=== PATIENT | male | born 1995 | race Asian ===

== ENCOUNTER 2017-04-15 11:27 | Emergency (ER) | payer BC ==
[~2017-04-15] VITALS: Ht 180.3 cm; Wt 75.3 kg
[2017-04-15 11:41] VITALS: TEMP 36.6; Ht 180.3 cm; Wt 75.3 kg
[2017-04-15] MEDS ORDERED: SODIUM CHLORIDE 0.9% 1000ML 1,000 ML IV STA (12:26)
--- NOTE | 2017-04-15 12:51 | DIAGNOSTIC IMAGING REPORT ---
SINGLE VIEW CHEST CLINICAL HISTORY: Generalized weakness. FINDINGS: An AP, portable, upright chest radiograph is obtained. No prior studies are available for comparison at the time of dictation. The cardiomediastinal silhouette is unremarkable. The lungs and pleural spaces are clear. No pneumothorax is seen. The bony thorax is grossly intact. IMPRESSION: No active disease in the chest. Electronically signed by: Darshan Graham M.D. 04/15/2017 12:50 PM Dictated Date/Time: 04/15/2017 12:49 PM
[2017-04-15 13:39] VITALS: O2SAT 98
[2017-04-15 13:50] LABS: URINE APPEARANCE CLEAR (CLEAR); URINE BILIRUBIN NEG (NEG); URINE COLOR YELLOW; URINE NITRITE NEG (NEG); URINE SPECIFIC GRAVITY 1.015 (1.000-1.030); UROBILINOGEN NEG (NEG)
[2017-04-15 13:54] LABS: MANUAL MICROSCOPIC REQUIRED? NO; REVIEW REQ? NO
[2017-04-15 13:57] LABS: BASO % 0.2 %; BASO ABS # 0.02 K/uL (0-0.2); COMPLETE YES; EOS % 1.3 %; HEMATOCRIT 45.5 % (42-52); IG% 0.7 %; LYMPH % 29.3 %; LYMPH ABS # 2.79 K/uL (1.2-3.4); MEAN CELL VOLUME 85.7 fL (80-100); MEAN CORPUSCULAR HEMOGLOBIN 29.4 pg (25-34); MEAN CORPUSCULAR HGB CONC 34.3 g/dl (32-36); MEAN PLATELET VOLUME 10.2 fL (7.4-10.4); MONO % 6.6 %; NEUT % 61.9 %; PLATELET COUNT 271 K/uL (130-400); RED BLOOD COUNT 5.31 M/uL (4.7-6.1); WHITE BLOOD COUNT 9.52 K/uL (4.8-10.8)
[2017-04-15 14:08] LABS: PARTIAL THROMBOPLASTIN RATIO 1.2; PROTHROMBIN TIME (PATIENT) 10.6 SECONDS (9.0-12.0)
[2017-04-15 14:10] LABS: ALT/SGPT 26 U/L (12-78); AST/SGOT 12 U/L (15-37); BLOOD UREA NITROGEN 16 mg/dl (7-18); BUN/CREATININE RATIO 17.1 (10-20); CALCIUM 9.1 mg/dl (8.5-10.1); CARBON DIOXIDE 26 mmol/L (21-32); CHLORIDE 103 mmol/L (98-107); CREATININE 0.92 mg/dl (0.60-1.40); GLUCOSE 94 mg/dl (70-99); MAGNESIUM 2.2 mg/dl (1.8-2.4); SODIUM 136 mmol/L (136-145)
[2017-04-15 14:21] LABS: ALKALINE PHOSPHATASE 76 U/L (45-117); CKMB/CK RATIO 0.8 (0-3.0)
[2017-04-15 15:32] VITALS: BP 132/65; PULSE 80; O2SAT 98
--- NOTE | 2017-04-15 20:03 | EMERGENCY ROOM VISIT NOTE ---
History Report prepared by Bernabe: Angela Hensley Under the Supervision of: Dr. Tato Piedra M.D. First contact with patient: 12:26 Chief Complaint: CARDIAC ASSESSMENT History of Present Illness The patient is a 22 year old male who presents to the Emergency Room for a cardiac assessment. The patient went to [facility] today because he briefly passed out this morning. [facility] did EKG on the patient which they thought was abnormal so they referred him to the ED. Presently, the patient is feeling good. The patient states he got up this morning to open a door to let his friend in his apartment when had a syncopal episode and he slowly fell to the ground. Per friend, when the patient passed out he was only passed out for 3 seconds. He states he was asleep right before he got up quickly to open the door. He states he has been feeling normal for the past week. After the episode , he states he felt nervous but otherwise completely normal. The patient has no medical history. Pt denies headache, fevers, chills, diaphoresis, visual changes , neck pain, chest pain, breathing difficulties, nausea, vomiting, abdominal pain, back pain, melena, hematochezia, urinary symptoms, numbness, weakness, lymphadenopathy, rash, or other complaints. Source of History: patient Onset: this morning Position: other (global) Quality: other (syncopal) Timing: other (episode) Note: Pt notes feeling nervous after the episode. Review of Systems See HPI for pertinent positives and negatives. A total of ten systems were reviewed and were otherwise negative. Past Medical & Surgical Medical Problems: (1) No Known Active Medical Problems Family History Patient reports no known family medical history. Social History Smoking Status: Never Smoker Housing Status: lives with roommate Occupation Status: [employer] student Current/Historical Medications No Active Prescriptions or Reported Meds Allergies Coded Allergies: No Known Allergies (Unverified , 04/15/17) Physical Exam Vital Signs Date Time Temp Pulse Resp B/P (MAP) Pulse Ox O2 Delivery O2 Flow Rate FiO2 04/15/17 15:32 80 18 132/65 98 Room Air 04/15/17 13:39 98 Room Air 04/15/17 13:37 68 20 128/68 100 04/15/17 12:02 73 04/15/17 11:41 36.6 75 18 124/66 100 Room Air Physical Exam GENERAL: Awake, alert, well-appearing, in no distress HENT: Normocephalic, atraumatic. Oropharynx unremarkable. EYES: Normal conjunctiva. Sclera non-icteric. NECK: Supple. No nuchal rigidity. FROM. No JVD. RESPIRATORY: Clear to auscultation. CARDIAC: Regular rate, normal rhythm. Extremities warm and well perfused. Pulses equal. ABDOMEN: Soft, non-distended. No tenderness to palpation. No rebound or guarding. No masses. RECTAL: Deferred. MUSCULOSKELETAL: Chest examination reveals no tenderness. The back is symmetrical on inspection without obvious abnormality. There is no CVA tenderness to palpation. No joint edema. LOWER EXTREMITIES: Calves are equal size bilaterally and non-tender. No edema. No discoloration. NEURO: Normal sensorium. No sensory or motor deficits noted. SKIN: No rash or jaundice noted. Medical Decision & Procedures ER Provider Diagnostic Interpretation: Radiology results as stated below per my review and radiologist interpretation: SINGLE VIEW CHEST FINDINGS: An AP, portable, upright chest radiograph is obtained. No prior studies are available for comparison at the time of dictation. The cardiomediastinal silhouette is unremarkable. The lungs and pleural spaces are clear. No pneumothorax is seen. The bony thorax is grossly intact. IMPRESSION: No active disease in the chest. Electronically signed by: Darshan Graham M.D. Laboratory Results 04/15/17 13:25 Red Blood Count 5.31, Mean Corpuscular Volume 85.7, Mean Corpuscular Hemoglobin 29.4, Mean Corpuscular Hemoglobin Concent 34.3, Mean Platelet Volume 10.2, Neutrophils (%) (Auto) 61.9, Lymphocytes (%) (Auto) 29.3, Monocytes (%) (Auto) 6.6, Eosinophils (%) (Auto) 1.3, Basophils (%) (Auto) 0.2, Neutrophils # (Auto) 5.89, Lymphocytes # (Auto) 2.79, Monocytes # (Auto) 0.63, Eosinophils # (Auto) 0.12, Basophils # (Auto) 0.02 04/15/17 13:25 Test 04/15/17 13:25 04/15/17 13:35 White Blood Count 9.52 K/uL (4.8-10.8) Red Blood Count 5.31 M/uL (4.7-6.1) Hemoglobin 15.6 g/dL (14.0-18.0) Hematocrit 45.5 % (42-52) Mean Corpuscular Volume 85.7 fL (80-100) Mean Corpuscular Hemoglobin 29.4 pg (25-34) Mean Corpuscular Hemoglobin Concent 34.3 g/dl (32-36) Platelet Count 271 K/uL (130-400) Mean Platelet Volume 10.2 fL (7.4-10.4) Neutrophils (%) (Auto) 61.9 % Lymphocytes (%) (Auto) 29.3 % Monocytes (%) (Auto) 6.6 % Eosinophils (%) (Auto) 1.3 % Basophils (%) (Auto) 0.2 % Neutrophils # (Auto) 5.89 K/uL (1.4-6.5) Lymphocytes # (Auto) 2.79 K/uL (1.2-3.4) Monocytes # (Auto) 0.63 K/uL (0.11-0.59) Eosinophils # (Auto) 0.12 K/uL (0-0.5) Basophils # (Auto) 0.02 K/uL (0-0.2) RDW Standard Deviation 39.6 fL (36.4-46.3) RDW Coefficient of Variation 12.5 % (11.5-14.5) Immature Granulocyte % (Auto) 0.7 % Immature Granulocyte # (Auto) 0.07 K/uL (0.00-0.02) Prothrombin Time 10.6 SECONDS (9.0-12.0) Prothromb Time International Ratio 1.0 (0.9-1.1) Activated Partial Thromboplast Time 31.8 SECONDS (21.0-31.0) Partial Thromboplastin Ratio 1.2 Anion Gap 7.0 mmol/L (3-11) Est Creatinine Clear Calc Drug Dose 134.1 ml/min Estimated GFR () 136.4 Estimated GFR (Non- 117.6 BUN/Creatinine Ratio 17.1 (10-20) Calcium Level 9.1 mg/dl (8.5-10.1) Magnesium Level 2.2 mg/dl (1.8-2.4) Total Bilirubin 0.4 mg/dl (0.2-1) Direct Bilirubin < 0.1 mg/dl (0-0.2) Aspartate Amino Transf (AST/SGOT) 12 U/L (15-37) Alanine Aminotransferase (ALT/SGPT) 26 U/L (12-78) Alkaline Phosphatase 76 U/L (45-117) Total Creatine Kinase 85 U/L (39-308) Creatine Kinase MB 0.7 ng/ml (0.5-3.6) Creatine Kinase MB Ratio 0.8 (0-3.0) Troponin I < 0.015 ng/ml (0-0.045) Total Protein 7.8 gm/dl (6.4-8.2) Albumin 4.2 gm/dl (3.4-5.0) Thyroid Stimulating Hormone (TSH) 1.700 uIu/ml (0.300-4.500) Urine Color YELLOW Urine Appearance CLEAR (CLEAR) Urine pH 7.0 (4.5-7.5) Urine Specific [place] 1.015 (1.000-1.030) Urine Protein NEG (NEG) Urine Glucose (UA) NEG (NEG) Urine Ketones NEG (NEG) Urine Occult Blood NEG (NEG) Urine Nitrite NEG (NEG) Urine Bilirubin NEG (NEG) Urine Urobilinogen NEG (NEG) Urine Leukocyte Esterase NEG (NEG) Laboratory results reviewed by me Medications Administered Medications (Trade) Dose Ordered Sig/Apolinar Route Start Time Stop Time Status Last Admin Dose Admin Sodium Chloride 1,000 ml @ 125 mls/hr Q8H STAT IV 04/15/17 12:26 04/15/17 16:08 DC 04/15/17 13:35 125 MLS/HR ECG Indication: syncope Rate (beats per minute): 69 Rhythm: normal sinus Findings: no ectopy, other (early repolarization, no pericarditis) Comparison ECG Date: EKG from [facility]: Sinus rhythm [address] elevation inferiorly and anteriorly no ectopy Change: Compared to 1st EKG ST elevation is less prominent ED Course 1226: Ordered Sodium Chloride 1000 ml @ 125 mls/hr IV. 1256: The patient was evaluated in room C10. A complete history and physical exam was performed. 1529: Cardiac monitors revealed no events or abnormalities. 1539:I updated the patient on his test results. He is feeling great. 1603: I reevaluated the patient. Discussed results and discharge instructions: He verbalized understanding and agreement. The patient is ready for discharge. Medical Decision Triage Nursing notes reviewed. The patient's presentation and history were concerning for syncope. Etiologies such as vasovagal event, infection, hypoglycemia, electrolyte abnormalities, cardiac sources, intracerebral event, toxicologic, neurologic, as well as others were entertained. The patient was evaluated. Clinically he looked well. He was smiling. His vital signs are stable. His ECG didn't reveal any abnormal findings. The patient had early repolarization noted. He is pretty hospital ECG done at the urgent care sent her was reviewed. This seems to be most consistent with early repolarization as well. The patient did not have any symptoms to suggest pericarditis or ischemia. He has had no chest pain whatsoever. He had a very brief syncopal episode that resolved immediately when he was awoke from sleep and got up quickly to run to the door. The patient was observed for several hours. He had no cardiac events on monitoring. He had unremarkable laboratory studies. His blood pressure was minimally elevated. I asked for the patient have a follow-up with [facility] for a recheck. If he has any recurrent issues he can come back to emergency department for reevaluation. The patient felt very comfortable with the plan.I gave my usual and customary discussion regarding this issue. By the evaluation outlined above other emergent etiologies such as those listed in the differential, as well as others, were deemed relatively unlikely. The patient was educated about the findings as listed above. All questions were answered and the patient was pleased with the treatment. Return instructions were outlined and the patient was discharged in stable condition. The patient was referred to [facility] for follow-up for a recheck of the current condition. Blood Pressure Screening Patient's blood pressure: Elevated blood pressure Blood pressure disposition: Elevated BP felt to be situational, Referred to PCP Impression Primary Impression: Syncope Additional Impression: Early repolarization Scribe Attestation The scribe's documentation has been prepared under my direction and personally reviewed by me in its entirety. I confirm that the note above accurately reflects all work, treatment, procedures, and medical decision making performed by me. Departure Information Dispostion Home / Self-Care Prescriptions No Active Prescriptions or Reported Meds Referrals No Doctor, Assigned (PCP) Forms IMPORTANT VISIT INFORMATION Patient Instructions My [facility] Additional Instructions Rest and drink plenty of fluids as tolerated. Get plenty of sleep each evening. Continue current medications. Return to the ER for passing out, chest pain, headache, persistent vomiting, fevers, abdominal pain, chest pains, difficulty breathing, black or bloody stools, worsening of your condition, or as needed. Problem Qualifiers
== END 2017-04-15 15:59 | disposition home or self-care (01) ==
LOC: C.EDB 11:29 → EDBD 11:29 → C.EDC 15:59
DX: R55 Syncope and collapse (principal); I49.3 Ventricular premature depolarization